=== PATIENT | female | born 1985 | race Caucasian/White ===

== ENCOUNTER 2021-03-12 09:31 | Observation (INO) ==
[2021-03-12 11:53] LABS: CO2 Carbon Dioxide 17 mmol/L (22-32); Chloride 95 mmol/L (101-111); EGFR African American 136.7 (>60)
[2021-03-12 11:55] LABS: Anion Gap 7 mmol/L (2-11); Sodium 119 mmol/L (135-145)
[2021-03-12 11:57] LABS: Albumin 4.8 g/dL (3.2-5.2); Albumin/Globulin Ratio 1.8 (1-3); Alkaline Phosphatase 59 U/L (34-104); Calcium 8.4 mg/dL (8.6-10.3); Globulin 2.6 g/dL (2-4); Glucose 175 mg/dL (70-100); Total Protein 7.4 g/dL (6.4-8.9)
[2021-03-12] MEDS ORDERED: NS 0.9% 1000 ml BAG 1,000 ML IV ONE ×3 (11:58→13:06)
[2021-03-12 12:08] LABS: ALT 48 U/L (7-52); Blood Urea Nitrogen 13 mg/dL (6-24)
[2021-03-12 12:12] LABS: Hematocrit 41 % (35-47); Mean Corpuscular Volume 84 fL (80-97); Mean Platelet Volume 9.1 fL (7.4-10.4); Platelet Count 293 10^3/uL (150-450); Red Blood Count 4.81 10^6 /uL (3.70-4.87); Red Cell Distribution Width 14 % (10-15); White Blood Count 8.1 10^3/uL (3.5-10.8)
[2021-03-12 12:13] LABS: ABS Basophils 0.1 10^3/ul (0-0.2); ABS Eosinophils 0.1 10^3/ul (0-0.6); ABS Lymphocytes 2.8 10^3/ul (1.0-4.8); ABS Monocytes 0.2 10^3/ul (0-0.8); ABS Neutrophils 4.8 10^3/ul (1.5-7.7); Eosinophil % 1.3 %; Lymphocyte % 34.6 %; Nucleated Red Blood Cells % 0.1
[2021-03-12 12:14] LABS: Hemoglobin 13.6 g/dL (12.0-16.0); Mean Corpuscular HGB Conc 33 g/dL (31-36); Mean Corpuscular Hemoglobin 28 pg (27-31)
[2021-03-12 12:33] LABS: Potassium, Whole Blood 6.6 mmol/L (3.4-4.5)
[2021-03-12] MEDS ORDERED: Albuterol 2.5mg/3 ml (0.083%) NEB.SOLN INH ONE (12:38)
[2021-03-12] MEDS ORDERED: Sodium Polystyrene ORAL.SUSP 15 GM/60 ML BTL PO ONE (12:46)
[2021-03-12 13:29] LABS: Triglycerides 5021 mg/dL
[2021-03-12 13:38] LABS: Urine Appearance Cloudy; Urine Bilirubin Negative (Negative); Urine Blood 3+ (Negative); Urine Color Yellow; Urine Glucose 3+(>=500 mg/dL) (Negative); Urine Ketones Negative (Negative); Urine Nitrite Negative (Negative); Urine Protein 1+(30 mg/dL) (Negative); Urine Specific Gravity 1.032 (1.002-1.030); Urine Urobilinogen Negative (Negative)
[2021-03-12 13:57] LABS: Urine Bacteria Absent (Absent); Urine Red Blood Cell 3+(>10/hpf) (Absent); Urine Squamous Epithelial Cell Present (Absent); Urine White Blood Cell Absent (Absent)
[2021-03-12 14:10] LABS: Lipase 94 U/L (11.0-82.0)
[2021-03-12 16:43] LABS: ALT 41 U/L (7-52); Albumin 3.4 g/dL (3.2-5.2); Albumin/Globulin Ratio 1.8 (1-3); Alkaline Phosphatase 52 U/L (34-104); Blood Urea Nitrogen 11 mg/dL (6-24); CO2 Carbon Dioxide 16 mmol/L (22-32); Calcium 7.1 mg/dL (8.6-10.3); EGFR African American 199.3 (>60); EGFR Non-African American 164.7 (>60); Globulin 1.9 g/dL (2-4); Glucose 115 mg/dL (70-100); Total Protein 5.3 g/dL (6.4-8.9); Triglycerides 3568 mg/dL
[2021-03-12] MEDS ORDERED: Dextrose 50% Syringe 50 ml 25 GM/50 ML SYRINGE IV PUSH PRN ×2 (17:41→17:42)
[2021-03-12] MEDS ORDERED: NS 0.9% 1000 ml BAG 1,000 ML IV SCH (17:45)
[2021-03-12 18:08] LABS: Potassium, Whole Blood 4.6 mmol/L (3.4-4.5)
[2021-03-12 19:30] LABS: TSH Ultra Thyroid Stim Horm 0.54 mcIU/mL (0.34-5.60)
[2021-03-12] MEDS ORDERED: Calcium Gluconate 2 GM in NS 0.9% 100 ml BAG 100 ML IV ONE (20:28)
[2021-03-12] MEDS ORDERED: Magnesium Sulfate 2 gm BAG 2 GM/50 ML BAG IVPB ONE (20:30)
[2021-03-12] MEDS ORDERED: SitaGLIPtin 25mg TAB (NF) 25 MG TAB PO SCH (21:00)
[2021-03-12] MEDS: Lactated Ringers 1000 ml BAG 1,000 ML IV SCH (21:13)
[2021-03-12] MEDS: Venlafaxine XR 75 mg PO SCH (21:13)
[2021-03-12 21:55] LABS: Albumin 3.5 g/dL (3.2-5.2); Albumin/Globulin Ratio 1.6 (1-3); Alkaline Phosphatase 61 U/L (34-104); Blood Urea Nitrogen 12 mg/dL (6-24); CO2 Carbon Dioxide 15 mmol/L (22-32); Calcium 7.7 mg/dL (8.6-10.3); EGFR African American 139.3 (>60); EGFR Non-African American 115.1 (>60); Globulin 2.2 g/dL (2-4); Glucose 173 mg/dL (70-100); Total Protein 5.7 g/dL (6.4-8.9)
[2021-03-12 22:11] LABS: ALT 43 U/L (7-52)
[2021-03-13 00:08] LABS: Potassium, Whole Blood 3.5 mmol/L (3.4-4.5)
[2021-03-13 05:22] LABS: Potassium, Whole Blood 3.7 mmol/L (3.4-4.5)
[2021-03-13 05:35] LABS: Mean Corpuscular Hemoglobin 28 pg (27-31)
[2021-03-13 05:36] LABS: Mean Corpuscular HGB Conc 33 g/dL (31-36)
[2021-03-13 05:37] LABS: ABS Basophils 0.1 10^3/ul (0-0.2); ABS Eosinophils 0.1 10^3/ul (0-0.6); ABS Lymphocytes 2.1 10^3/ul (1.0-4.8); ABS Monocytes 0.2 10^3/ul (0-0.8); Eosinophil % 1.8 %; Hematocrit 36 % (35-47); Lymphocyte % 31.9 %; Mean Corpuscular Volume 83 fL (80-97); Mean Platelet Volume 8.9 fL (7.4-10.4); Nucleated Red Blood Cells % 0.1; Platelet Count 198 10^3/uL (150-450); Red Blood Count 4.33 10^6 /uL (3.70-4.87); Red Cell Distribution Width 14 % (10-15); White Blood Count 6.5 10^3/uL (3.5-10.8)
[2021-03-13 05:50] LABS: ALT 45 U/L (7-52); Albumin 3.5 g/dL (3.2-5.2); Albumin/Globulin Ratio 1.6 (1-3); Alkaline Phosphatase 69 U/L (34-104); Blood Urea Nitrogen 8 mg/dL (6-24); CO2 Carbon Dioxide 17 mmol/L (22-32); Calcium 8.1 mg/dL (8.6-10.3); EGFR Non-African American 145.4 (>60); Globulin 2.2 g/dL (2-4); Glucose 181 mg/dL (70-100); Lipase 62 U/L (11.0-82.0); Total Protein 5.7 g/dL (6.4-8.9)
[2021-03-13 06:22] LABS: Triglycerides 3102 mg/dL
[2021-03-13] MEDS: Lactated Ringers 1000 ml BAG 1,000 ML IV SCH ×2 (11:22→23:38)
[2021-03-13 17:16] LABS: Vitamin B12 439 pg/mL (180-914)
[2021-03-13] MEDS: Venlafaxine XR 75 mg PO SCH (20:09)
[2021-03-13] MEDS ORDERED: CMCS: OMEGA-3 FATTY ACID 1000 mg(NF) PO SCH (21:00)
[2021-03-14 05:11] LABS: HDL Cholesterol 20.7 mg/dL
[2021-03-14] MEDS: Lactated Ringers 1000 ml BAG 1,000 ML IV SCH (10:29)
[2021-03-14 12:19] VITALS: BP 125/71
[2021-03-14 20:54] LABS: Pancreatic Elastase Feces >500 mcg/g
[2021-03-14] MEDS ORDERED: Venlafaxine XR 75 mg PO SCH (21:00)
== END 2021-03-14 15:00 | disposition home or self-care (01) ==
LOC: ED 09:31 → MEDTELE 09:31
PROVIDERS: ADMIT Hospitalist; ATTEND Internal Medicine